=== PATIENT | male | born 1940 | race Caucasian/White ===

== ENCOUNTER 2017-01-01 09:07 | Emergency (ER) | payer MEDICARE, BC ==
--- NOTE | 2017-01-01 11:42 | EDM.PDOC ---
ED HPI GENERAL MEDICAL PROBLEM - General Chief Complaint: General Stated Complaint: blocked catheter Time Seen by Provider: 01/01/17 09:30 Source of Information: Reports: Patient, Family History Limitations: Reports: No Limitations - History of Present Illness INITIAL COMMENTS - FREE TEXT/NARRATIVE: This is a 76yo M with recent TURP and linares here for a blocked linares. There has been urine that leaks from the side of the linares but there has been nothing coming out of the linares since yesterday. Patient denies any pain but has had some suprapubic pressure. Denies any fever or chills. Does have a history of right sided weakness from a prior CVA. Onset: Sudden Duration: Day(s): (1) Location: Reports: Pelvis Severity: Mild Improves with: Reports: None Worsens with: Reports: None Associated Symptoms: Reports: No Other Symptoms - Related Data Allergies Allergy/AdvReac Type Severity Reaction Status Date / Time No Known Allergies Allergy Verified 07/20/14 20:33 Home Meds: Home Meds NK [No Known Home Meds] 07/20/14 [History] Past Medical History - Past Health History Medical/Surgical History: Denies Medical/Surgical History Social & Family History - Tobacco Use Smoking Status *Q: Never Smoker Second Hand Smoke Exposure: No - Recreational Drug Use Recreational Drug Use: No ED ROS GENERAL - Review of Systems Review Of Systems: ROS reveals no pertinent complaints other than HPI. ED EXAM, GENERAL - Physical Exam Exam: See Below Exam Limited By: No Limitations General Appearance: Alert, WD/WN, No Apparent Distress Ears: Normal External Exam Nose: Normal Inspection Throat/Mouth: Normal Inspection Head: Atraumatic, Normocephalic Neck: Normal Inspection Respiratory/Chest: No Respiratory Distress Cardiovascular: Normal Peripheral Pulses GI/Abdominal: Normal Bowel Sounds (Male) Exam: Normal Inspection, Other (linares in place) Course - Re-Assessments/Exams Free Text/Narrative Re-Assessment/Exam: Nurse tried to flush linares and was unable to. Linares adjusted and pushed into the urethra 3-4 inches, then flushed with good return and linares was patent. 5cc sterile water placed in linares balloon and linares appeared in place and catches when slightly retracted. No further drainage issues. 800mL pink/red urine filled to bag. Patient felt improvement immediately. Departure - Departure Time of Disposition: 10:20 Disposition: Home, Self-Care 01 Condition: Good Clinical Impression: Linares catheter in place Obstructed Linares catheter Qualifiers: Encounter type: initial encounter Qualified Code(s): T83.091A - Other mechanical complication of indwelling urethral catheter, initial encounter - Discharge Information Instructions: Linares Catheter Care, Adult Forms: ED Department Discharge Care Plan Goals: Counseled on care and continued follow up with Urology and instructions. Discussed f/u in ER or clinic as needed if symptoms arise.
== END 2017-01-01 10:10 | disposition home or self-care (01) ==
LOC: LB.ED 09:07
DX: T83.091A Other mechanical complication of indwelling urethral catheter, initial encounter (principal)
CPT/HCPCS: 99283

== ENCOUNTER 2018-05-05 16:57 | Emergency (ER) | payer MEDICARE, BC ==
[2018-05-05] MEDS ORDERED: Sulfamethoxazole/Trimethoprim 800-160 MG Tab ONE (17:00)
--- NOTE | 2018-05-05 17:43 | EDM.PDOC ---
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 He does use walker for ambulation.According to pt's ,they went to [facility] to play cards. When they were leaving home, she did notice patient was tired and feeling weak, but was able to walk with his walker and was little slower than usual. They did play and when he was return home, his legs buckled and he slowly dropped down to the ground. Since this episode patient has walked back to home.Pt'/s called ambulance as she got concerned if he has stoke. Pt was brought in by EMS.Pt's vitals were stable. He does have residual left sided stroke. There has not been ny neurological changes during transfer and he has been alert. In the emergency room, pt claims he feels fine. But he has a temp of 101F. No cough, no dysuria or frequency. No abdominal pain or distension.Pt does have history of UTI in the past. Onset: Today Onset Date: 05/05/18 Onset Time: 09:00 Duration: Recurring Severity: Mild Improves with: Reports: None Worsens with: Reports: None Associated Symptoms: Reports: Fever/Chills, Weakness. Denies: Confusion, Chest Pain, Cough, Diaphoresis, Headaches, Loss of Appetite, Malaise, Nausea/Vomiting , Rash, Seizure, Shortness of Breath, Syncope - Related Data Allergies Allergy/AdvReac Type Severity Reaction Status Date / Time No Known Allergies Allergy Verified 05/05/18 17:27 Home Meds: Home Meds NK [No Known Home Meds] 07/20/14 [History] Past Medical History - Past Health History Medical/Surgical History: Denies Medical/Surgical History ED ROS GENERAL - Review of Systems Review Of Systems: See Below Constitutional: Reports: Fever. Denies: Chills HEENT: Denies: Rhinitis, Throat Pain, Throat Swelling Respiratory: Denies: Shortness of Breath, Pleuritic Chest Pain, Cough, Sputum Cardiovascular: Denies: Chest Pain, Blood Pressure Problem, Lightheadedness Endocrine: Denies: Fatigue GI/Abdominal: Denies: Abdominal Pain, Nausea, Vomiting : Denies: Dysuria, Flank Pain, Frequency Musculoskeletal: Denies: Joint Pain, Joint Swelling Skin: Denies: Bruising, Pruritis, Rash Neurological: Reports: Pre-Existing Deficit (left sided hemiparesis). Denies: Confusion, Dizziness, Headache, Numbness, Tingling ED EXAM, GENERAL - Physical Exam Exam: See Below Exam Limited By: No Limitations General Appearance: Alert, WD/WN, No Apparent Distress Eye Exam: Bilateral Eye: EOMI, PERRL Ears: Normal External Exam, Normal Canal, Hearing Grossly Normal, Normal TMs Ear Exam: Bilateral Ear: Auricle Normal, Canal Normal, TM normal Nose: Normal Inspection, Normal Mucosa, No Blood Throat/Mouth: Normal Inspection, Normal Lips, Normal Teeth, Normal Gums, Normal Oropharynx, Normal Voice, No Airway Compromise Head: Atraumatic, Normocephalic Neck: Normal Inspection, Supple, Non-Tender, Full Range of Motion Respiratory/Chest: No Respiratory Distress, Lungs Clear, Normal Breath Sounds, No Accessory Muscle Use, Chest Non-Tender Cardiovascular: Normal Peripheral Pulses, Regular Rate, Rhythm, No Edema, No Gallop, No JVD, No Murmur, No Rub Neurological: Alert, Oriented, CN II-XII Intact, Normal Cognition, Normal Reflexes, No Motor/Sensory Deficits, Other (Pateint is able to walk with walker at his baseline, but feels tired. ) Course - Vital Signs Text/Narrative:: Pt's clinical exam appears normal. He does have baseline neurological deficits from previous right hemiparesis. He did walk with the walker. He is running a temp of 101F. He probably has infective cause for his weakness. His chest X-ray is negative. CBC shows elevated white count of 14.5K with 77 neutrophils.His UA does show 75-100 WBC with positive nitrites and is cloudy. He probably has UTI with fever. His BMP is normal. Pt and family reassured that he has acute UTI, which is the cause of his fever and weakness. He is no lethargic and also he has been feeding well nd does not have nausea or vomiting asso with his UTI. I have discussed the results with patient and family. I have started patient on Bactrim DS 1 po BID for 7 days. Also advised to drink plenty of fluids. Also urine culture has been sent will followup with results. Tylenol 500mg every 6 hrs as needed for fever. Advised to return to emergency room,if he does develop nausea, vomiting, worsening fever or lethargy. Last Recorded V/S: Last Vital Signs Temp 101 F H 05/05/18 17:25 Pulse 116 H 05/05/18 17:25 Resp 20 05/05/18 17:25 BP 116/79 05/05/18 17:25 Pulse Ox 98 05/05/18 17:25 - Orders/Labs/Meds Orders: Active Orders 24 hr Category Date Time Status Chest 1V Frontal [CR] Stat Exams 05/05/18 17:34 Taken COMPREHENSIVE METABOLIC PN,CMP [CHEM] Stat Lab 05/05/18 17:40 Received CULTURE URINE [RM] Stat Lab 05/05/18 18:00 Ordered Labs: Laboratory Tests 05/05/18 05/05/18 Range/Units 17:40 17:44 WBC 14.5 H D (4.0-11.0) K/uL RBC 5.60 (4.50-6.50) M/uL Hgb 17.5 (13.0-18.0) g/dL Hct 49.9 (40.0-54.0) % MCV 89 (76-96) fL MCH 31.3 (27.0-32.0) pg MCHC 35.1 H (31.0-35.0) g/dL RDW 13.0 (11.0-16.0) % Plt Count 114 L (150-400) K/uL MPV 9.2 (6.0-10.0) fL Neut % (Auto) 72.2 H (45.0-70.0) % Lymph % (Auto) 17.4 L (20.0-40.0) % [place] % (Auto) 10.0 (3.0-10.0) % Eos % (Auto) 0.1 L (1.0-5.0) % Baso % (Auto) 0.3 (0.0-0.5) % Neut # (Auto) 10.42 H (2.00-7.50) K/uL Lymph # (Auto) 2.52 (1.50-4.00) K/uL [place] # (Auto) 1.45 H (0.20-0.80) K/uL Eos # (Auto) 0.02 L (0.04-0.40) K/uL Baso # (Auto) 0.04 (0.02-0.10) K/uL Urine Color Yellow Urine Appearance Cloudy (CLEAR) Urine pH 5.5 (5.0-8.0) Ur Specific [place] 1.020 (1.003-1.030) Urine Protein 30 H (NEGATIVE) mg/dL Urine Glucose (UA) 500 H (NEGATIVE) mg/dL Urine Ketones 15 H (NEGATIVE) mg/dL Urine Occult Blood Trace-lysed H (NEGATIVE) Urine Nitrite Positive H (NEGATIVE) Urine Bilirubin Negative (NEGATIVE) Urine Urobilinogen 1.0 (0.2-1.0) E.U./dL Ur Leukocyte Esterase Small H (NEGATIVE) Urine RBC 0-5 H /HPF Urine WBC 75-100 H /HPF Urine WBC Clumps Occasional /HPF Urine Bacteria Many H /HPF Meds: Medications Discontinued Medications Generic Name Dose Route Start Last Admin Trade Name Alejandro PRN Reason Stop Dose Admin Acetaminophen 650 mg 05/05/18 17:54 Tylenol PO 05/05/18 17:55 NOW ONE Departure - Departure Time of Disposition: 18:30 Disposition: Home, Self-Care 01 Condition: Fair Clinical Impression: UTI (urinary tract infection) - Discharge Information *PRESCRIPTION DRUG MONITORING PROGRAM REVIEWED*: Not Applicable *COPY OF PRESCRIPTION DRUG MONITORING REPORT IN PATIENT HUE: Not Applicable Forms: ED Department Discharge Additional Instructions: Pt's clinical exam appears normal. He does have baseline neurological deficits from previous right hemiparesis. He did walk with the walker. He is running a temp of 101F. He probably has infective cause for his weakness. His chest X-ray is negative. CBC shows elevated white count of 14.5K with 77 neutrophils.His UA does show 75-100 WBC with positive nitrites and is cloudy. He probably has UTI with fever. His BMP is normal. Pt and family reassured that he has acute UTI, which is the cause of his fever and weakness. He is no lethargic and also he has been feeding well nd does not have nausea or vomiting asso with his UTI. I have discussed the results with patient and family. I have started patient on Bactrim DS 1 po BID for 7 days. Also advised to drink plenty of fluids. Also urine culture has been sent will followup with results. Tylenol 500mg every 6 hrs as needed for fever. Advised to return to emergency room,if he does develop nausea, vomiting, worsening fever or lethargy. - Problem List & Annotations (1) UTI (urinary tract infection) SNOMED Code(s): 89816423 Code(s): N39.0 - URINARY TRACT INFECTION, SITE NOT SPECIFIED Status: Acute - Problem List Review Problem List Initiated/Reviewed/Updated: Yes - My Orders Last 24 Hours: My Active Orders 05/05/18 17:34 Chest 1V Frontal [CR] Stat 05/05/18 17:40 COMPREHENSIVE METABOLIC PN,CMP [CHEM] Stat 05/05/18 18:00 CULTURE URINE [RM] Stat - Assessment/Plan Last 24 Hours: My Active Orders 05/05/18 17:34 Chest 1V Frontal [CR] Stat 05/05/18 17:40 COMPREHENSIVE METABOLIC PN,CMP [CHEM] Stat 05/05/18 18:00 CULTURE URINE [RM] Stat Assessment:: UTI Plan: Pt's clinical exam appears normal. He does have baseline neurological deficits from previous right hemiparesis. He did walk with the walker. He is running a temp of 101F. He probably has infective cause for his weakness. His chest X-ray is negative. CBC shows elevated white count of 14.5K with 77 neutrophils.His UA does show 75-100 WBC with positive nitrites and is cloudy. He probably has UTI with fever. His BMP is normal. Pt and family reassured that he has acute UTI, which is the cause of his fever and weakness. He is no lethargic and also he has been feeding well nd does not have nausea or vomiting asso with his UTI. I have discussed the results with patient and family. I have started patient on Bactrim DS 1 po BID for 7 days. Also advised to drink plenty of fluids. Also urine culture has been sent will followup with results. Tylenol 500mg every 6 hrs as needed for fever. Advised to return to emergency room,if he does develop nausea, vomiting, worsening fever or lethargy.
[2018-05-05] MEDS ORDERED: Acetaminophen 325 MG Tab PO ONE (17:54)
--- NOTE | 2018-05-06 10:10 | CR ---
DATE OF SERVICE: 05/05/18 CLINICAL DATA: fever AP PORTABLE CHEST: Comparison is made to a prior exam dated 06/23/17. The heart size is normal. The aorta is calcified and ectatic. The lungs are clear. No pneumothorax. No pleural effusions. No evidence of acute intrathoracic disease. [id number] [facility]
== END 2018-05-05 18:35 | disposition home or self-care (01) ==
LOC: LB.ED 16:57
DX: N39.0 Urinary tract infection, site not specified (principal); Z86.73 Personal history of transient ischemic attack (TIA), and cerebral infarction without residual deficits
CPT/HCPCS: 36415; 71045; 80053; 81001; 85025; 87086; 87088; 87186; 99285; A9270; 99283

== ENCOUNTER 2018-07-09 18:10 | Emergency (ER) | payer MEDICARE, BC ==
--- NOTE | 2018-07-09 18:49 | EDM.PDOC ---
ED HPI GENERAL MEDICAL PROBLEM - General Chief Complaint: Neurological Problem Stated Complaint: FEVER Time Seen by Provider: 07/09/18 18:40 Source of Information: Reports: Patient, Family History Limitations: Reports: No Limitations, Altered Mental Status - History of Present Illness INITIAL COMMENTS - FREE TEXT/NARRATIVE: This patient presents in the ED in the care of his and son for evaluation of changes in mental status. His states he didn't seem as active as typical yesterday but otherwise seemed fine. Today around noon she reports he just hasn't seemed like himself and has been seeing things that are not present. He also had a temp of about 100 late this afternoon. He has been eating and drinking well today without vomiting or diarrhea. The patient denies pain. Onset: Today, Gradual Onset Date: 07/09/18 Onset Time: 12:00 Duration: Constant Location: Reports: Other (change in mental status) Severity: Mild Improves with: Reports: None Worsens with: Reports: None Associated Symptoms: Reports: Confusion, Fever/Chills - Related Data Allergies Allergy/AdvReac Type Severity Reaction Status Date / Time No Known Allergies Allergy Verified 07/09/18 18:45 Home Meds: Home Meds NK [No Known Home Meds] 07/20/14 [History] Past Medical History - Past Health History Medical/Surgical History: Denies Medical/Surgical History Genitourinary History: Reports: UTI, Recurrent Neurological History: Reports: CVA Endocrine/Metabolic History: Reports: Diabetes, Type II ED ROS GENERAL - Review of Systems Review Of Systems: See Below Constitutional: Reports: Fever HEENT: Reports: No Symptoms Respiratory: Denies: Shortness of Breath, Cough Cardiovascular: Denies: Chest Pain, Lightheadedness GI/Abdominal: Denies: Diarrhea, Decreased Appetite, Nausea, Vomiting Musculoskeletal: Reports: No Symptoms Skin: Reports: No Symptoms Neurological: Reports: Confusion Psychiatric: Reports: Hallucinations - Physical Exam Exam: See Below Exam Limited By: No Limitations ( is historian; patient unreliable) General Appearance: Alert, WD/WN, No Apparent Distress Eye Exam: Bilateral Eye: PERRL Ears: Normal External Exam Nose: Normal Inspection Throat/Mouth: Normal Inspection Head Exam: Atraumatic, Normocephalic Neck: Normal Inspection, Supple, Non-Tender, Full Range of Motion Respiratory/Chest: No Respiratory Distress, Lungs Clear, Normal Breath Sounds, No Accessory Muscle Use Cardiovascular: Regular Rate, Rhythm Neuro Exam (Abbreviated): Alert, Confused Back Exam: No: CVA Tenderness (R), CVA Tenderness (L) Psychiatric: Normal Affect, Normal Mood Skin Exam: Warm, Dry, Intact Course - Vital Signs Last Recorded V/S: Last Vital Signs Temp 37.6 C 07/09/18 18:40 Pulse 102 H 07/09/18 18:40 Resp 18 07/09/18 18:40 BP 145/91 H 07/09/18 18:40 Pulse Ox 98 07/09/18 18:40 - Orders/Labs/Meds Labs: Laboratory Tests 07/09/18 07/09/18 07/09/18 Range/Units 19:00 19:00 19:00 WBC 11.8 H (4.0-11.0) K/uL RBC 5.79 (4.50-6.50) M/uL Hgb 18.1 H* (13.0-18.0) g/dL Hct 52.4 (40.0-54.0) % MCV 91 (76-96) fL MCH 31.3 (27.0-32.0) pg MCHC 34.5 (31.0-35.0) g/dL RDW 13.2 (11.0-16.0) % Plt Count 132 L (150-400) K/uL MPV 9.3 (6.0-10.0) fL Neut % (Auto) 64.7 (45.0-70.0) % Lymph % (Auto) 24.7 (20.0-40.0) % [place] % (Auto) 9.6 (3.0-10.0) % Eos % (Auto) 0.7 L (1.0-5.0) % Baso % (Auto) 0.3 (0.0-0.5) % Neut # (Auto) 7.66 H (2.00-7.50) K/uL Lymph # (Auto) 2.92 (1.50-4.00) K/uL [place] # (Auto) 1.13 H (0.20-0.80) K/uL Eos # (Auto) 0.08 (0.04-0.40) K/uL Baso # (Auto) 0.03 (0.02-0.10) K/uL Sodium 136 (136-145) mmol/L Potassium 4.2 (3.5-5.1) mmol/L Chloride 97 L (98-107) mmol/L Carbon Dioxide 27.4 (21.0-32.0) mmol/L Anion Gap 15.8 H (5.0-15.0) mmol/L BUN 17 (8-26) mg/dL Creatinine 1.27 (0.70-1.30) mg/dL Est Cr Clr Drug Dosing TNP Estimated GFR (MDRD) 55 L (>60) MLS/MIN BUN/Creatinine Ratio 13.4 (6-25) Glucose 261 H (74-100) mg/dL Lactic Acid 2.37 H (0.90-1.70) mmol/L Calcium 9.2 (8.5-10.1) mg/dL Urine Color Urine Appearance (CLEAR) Urine pH (5.0-8.0) Ur Specific [place] (1.003-1.030) Urine Protein (NEGATIVE) mg/dL Urine Glucose (UA) (NEGATIVE) mg/dL Urine Ketones (NEGATIVE) mg/dL Urine Occult Blood (NEGATIVE) Urine Nitrite (NEGATIVE) Urine Bilirubin (NEGATIVE) Urine Urobilinogen (0.2-1.0) E.U./dL Ur Leukocyte Esterase (NEGATIVE) Urine RBC /HPF Urine WBC /HPF Urine WBC Clumps /HPF Urine Bacteria /HPF 07/09/18 Range/Units 19:20 WBC (4.0-11.0) K/uL RBC (4.50-6.50) M/uL Hgb (13.0-18.0) g/dL Hct (40.0-54.0) % MCV (76-96) fL MCH (27.0-32.0) pg MCHC (31.0-35.0) g/dL RDW (11.0-16.0) % Plt Count (150-400) K/uL MPV (6.0-10.0) fL Neut % (Auto) (45.0-70.0) % Lymph % (Auto) (20.0-40.0) % [place] % (Auto) (3.0-10.0) % Eos % (Auto) (1.0-5.0) % Baso % (Auto) (0.0-0.5) % Neut # (Auto) (2.00-7.50) K/uL Lymph # (Auto) (1.50-4.00) K/uL [place] # (Auto) (0.20-0.80) K/uL Eos # (Auto) (0.04-0.40) K/uL Baso # (Auto) (0.02-0.10) K/uL Sodium (136-145) mmol/L Potassium (3.5-5.1) mmol/L Chloride (98-107) mmol/L Carbon Dioxide (21.0-32.0) mmol/L Anion Gap (5.0-15.0) mmol/L BUN (8-26) mg/dL Creatinine (0.70-1.30) mg/dL Est Cr Clr Drug Dosing Estimated GFR (MDRD) (>60) MLS/MIN BUN/Creatinine Ratio (6-25) Glucose (74-100) mg/dL Lactic Acid (0.90-1.70) mmol/L Calcium (8.5-10.1) mg/dL Urine Color Yellow Urine Appearance Cloudy (CLEAR) Urine pH 5.5 (5.0-8.0) Ur Specific [place] 1.020 (1.003-1.030) Urine Protein Negative (NEGATIVE) mg/dL Urine Glucose (UA) 500 H (NEGATIVE) mg/dL Urine Ketones Negative (NEGATIVE) mg/dL Urine Occult Blood Trace-lysed H (NEGATIVE) Urine Nitrite Positive H (NEGATIVE) Urine Bilirubin Negative (NEGATIVE) Urine Urobilinogen 0.2 (0.2-1.0) E.U./dL Ur Leukocyte Esterase Moderate H (NEGATIVE) Urine RBC Not seen /HPF Urine WBC >100 H /HPF Urine WBC Clumps Few /HPF Urine Bacteria Many H /HPF - Re-Assessments/Exams Free Text/Narrative Re-Assessment/Exam: 07/09/18 19:42 This patient presents today with a change in mental status. He has a history of this happening when he develops a UTI. History and clinical findings are most consistent with a urinary tract infection. Patient is nontoxic appearing with no CVA tenderness, vomiting, or fever. Presentation is not suggestive of pyelonephritis, infected stone, or renal abscess. No indication for further workup at this time. Patient was prescribed a 10 day course of Bactrim DS. Urine culture not performed as presentation is c/w uncomplicated UTI. Patient should follow up with his primary care provider in 10-14 days for recheck and return immediately if he develops any fevers or chills, flank pain, vomiting, or any other new or worsening symptoms. Departure - Departure Time of Disposition: 19:45 Disposition: DC/Tfer to [facility] 03 Preliminary Cause of *Q: Sepsis & Multi System Organ Failure Condition: Good Clinical Impression: Urinary tract infection, UTI (urinary tract infection), uncomplicated, Mental status alteration - Discharge Information *PRESCRIPTION DRUG MONITORING PROGRAM REVIEWED*: Not Applicable *COPY OF PRESCRIPTION DRUG MONITORING REPORT IN PATIENT HUE: Not Applicable Instructions: Urinary Tract Infection, Adult, Sulfamethoxazole; Trimethoprim, SMX-TMP tablets, Fever, Adult, [id number] Referrals: PCP,None [Ordering Only Provider] - Forms: ED Department Discharge Additional Instructions: Take Bactrim 1 tab orally twice a day for 10 days. Start first dose tonight. Keep pushing fluids. May give Tylenol or Ibuprofen for fever. Have a repeat UA done in 2 weeks from today. May want to eat yogurt or take probiotic while on antibiotic.
[2018-07-09] MEDS ORDERED: Sulfamethoxazole/Trimethoprim 800-160 MG Tab ONE (19:30)
== END 2018-07-09 19:45 | disposition home or self-care (01) ==
LOC: LB.ED 18:10
DX: N39.0 Urinary tract infection, site not specified (principal); R41.82 Altered mental status, unspecified; E11.9 Type 2 diabetes mellitus without complications; Z86.73 Personal history of transient ischemic attack (TIA), and cerebral infarction without residual deficits
CPT/HCPCS: 36415; 80048; 81001; 83605; 85025; 99283; A9270-GY